=== PATIENT | male | born 1975 | race Caucasian/White ===

== ENCOUNTER 2016-09-18 17:43 | Emergency (ER) | payer OTHER | END 2016-09-18 20:48 | disposition home or self-care (01) | LOC: ER 17:43 | DX: R19.7 Diarrhea, unspecified (principal); R50.9 Fever, unspecified; R11.0 Nausea; F32.9 Major depressive disorder, single episode, unspecified; F17.210 Nicotine dependence, cigarettes, uncomplicated; Z79.82 Long term (current) use of aspirin; Z79.899 Other long term (current) drug therapy; Z88.5 Allergy status to narcotic agent | CPT/HCPCS: 36415; 87502; 87507; 87651; 96360; 96361 ==